=== PATIENT | female | born 1985 | race Caucasian/White ===

== ENCOUNTER 2022-12-28 12:10 | Emergency (ER) | payer BC, SELFPAY ==
[2022-12-28 12:27] VITALS: BP 126/83; PULSE 54; RESP 18; TEMP 36.8; O2SAT 97; BMI 33.2
--- NOTE | 2022-12-28 12:46 | CT_ITS ---
The [address] [address] Patient Name: CURT LEYVA MRN: [id number] date: 1985 Sex: F Assigned Patient Location: ER Current Patient Location: ER Accession/Order Number: [id number] Exam Date: 12/28/2022 12:50 Report Date: 12/28/2022 13:32 At the request of: PRESTON FLORES Procedure: CT cervical spine wo con CT cervical spine wo con, 12/28/2022 12:50 PM EDT INDICATION: Neck pain COMPARISON: Noncontrast CT of the cervical spine 03/09/2022 TECHNIQUE: Thin-section axial CT images of the entire cervical spine were acquired without contrast. Supplemental 2D reformatted images were generated and reviewed as needed. Dose reduction techniques were achieved by using automated exposure control and/or adjustment of mA and/or kV according to patient size and/or use of iterative reconstruction technique. FINDINGS: Straightening of cervical lordosis likely secondary to muscular spasm. No prevertebral soft tissue edema. No fracture. No subluxation. Vertebral body heights are maintained. Craniocervical junction is normal in appearance. Atlantodental distance is not widened. Thyroid gland is grossly unremarkable. No consolidation or effusion at the lung apices. CT/CT cervical spine wo con IMPRESSION: 1. No acute findings or significant degenerative change. Electronically authenticated by: LIANNE VARGAS Date: 12/28/2022 13:32
--- NOTE | 2022-12-28 12:46 | CT_ITS ---
The [address] [address] Patient Name: CURT LEYVA MRN: [id number] date: 1985 Sex: F Assigned Patient Location: ER Current Patient Location: ER Accession/Order Number: [id number] Exam Date: 12/28/2022 12:50 Report Date: 12/28/2022 13:18 At the request of: PRESTON FLORES Procedure: CT head/brain wo con CT head/brain wo con, 12/28/2022 12:50 PM EDT INDICATION: Face numbness COMPARISON: No prior CT of the head available for comparison at the time of this dictation. TECHNIQUE: Axial images of the head were obtained without IV contrast. Multiplanar reformatted images were generated and reviewed as needed. Dose reduction techniques were achieved by using automated exposure control and/or adjustment of mA and/or kV according to patient size and/or use of iterative reconstruction technique. FINDINGS: No intracranial mass, sulcal effacement, midline shift or acute hemorrhage. Cavum septum pellucidum. No hydrocephalus or extra-axial collection. Recinos-white matter differentiation is preserved. Orbits are unremarkable. The paranasal sinuses and mastoid air cells are clear. No acute skull fracture. CT/CT head/brain wo con IMPRESSION: No acute intracranial findings. Electronically authenticated by: LIANNE VARGAS Date: 12/28/2022 13:18
[2022-12-28] MEDS: ORPHENADRINE 60 MG/ 2 ML VIAL IM (13:45)
[2022-12-28] MEDS: KETOROLAC TROMETHAMINE 30 MG/ML VIAL IM (13:45)
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
== END 2022-12-28 14:24 | disposition home or self-care (01) ==
PROVIDERS: Emergency Provider Emergency Medicine
DX: S16.1XXA Strain of muscle, fascia and tendon at neck level, initial encounter (principal); M62.838 Other muscle spasm; X50.9XXA Other and unspecified overexertion or strenuous movements or postures, initial encounter; Z79.899 Other long term (current) drug therapy
CPT/HCPCS: 70450; 72125; 96372; 99284

== ENCOUNTER 2023-01-03 15:33 | Emergency (ER) | payer BC, SELFPAY ==
[2023-01-03 15:41] VITALS: BP 145/93; PULSE 79; RESP 20; TEMP 36.8; O2SAT 97; BMI 35.0
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
[2023-01-03 16:30] LABS: Basophils Percent Auto 0.4 % (0.2-2.0); Eosinophils Absolute Auto 0.1 10^3/uL (0.0-0.7); Hematocrit 40.1 % (36.0-48.0); Hemoglobin 13.4 g/dL (12.0-16.0); Immature Granulocytes Abs Auto 0.03 10^3/uL (0.00-0.03); Immature Granulocytes Pct Auto 0.4 % (0.0-0.5); Lymphocytes Absolute Auto 1.9 10^3/uL (1.2-3.8); Lymphocytes Percent Auto 25.9 % (20.5-60.0); Mean Corpuscular HGB Conc 33.4 g/dL (29.9-35.2); Mean Corpuscular Hemoglobin 30.3 pg (26.7-34.0); Mean Corpuscular Volume 90.7 fL (81.0-99.0); Mean Platelet Volume 10.1 fL (9.5-13.5); Monocytes Absolute Auto 0.4 10^3/uL (0.3-0.8); Monocytes Percent Auto 6.2 % (1.7-12.0); Neutrophils Absolute Auto 4.7 10^3/uL (1.4-6.5); Neutrophils Percent Auto 66.1 % (43.0-75.0); Platelet Count 225 10^3/uL (150-450); Red Blood Count 4.42 10^6/uL (4.20-5.40); Red Cell Distribution Width 12.6 % (11.0-15.0); White Blood Count 7.2 10^3/uL (4.0-11.0)
[2023-01-03] MEDS: METOCLOPRAMIDE HCL 10 MG/2 ML VIAL IVP (16:37)
[2023-01-03] MEDS: DEXAMETHASONE SODIUM PHOSPHATE 10 MG/ML VIAL IV (16:37)
[2023-01-03] MEDS: 0.9 % SODIUM CHLORIDE 1,000 ML 1000 ML IV (16:37)
[2023-01-03 16:38] LABS: Anion Gap 13.5; BUN Creatinine Ratio 12.7; Calcium 8.5 mg/dL (8.5-10.1); Carbon Dioxide 26.5 mmol/L (21.0-32.0); Chloride 105 mmol/L (98-107); Estimated GFR (African America >60 (>=60); Estimated GFR (Non-African Ame 56 (>=60); Glucose 100 mg/dL (74-106); Sodium 141 mmol/L (136-145)
--- NOTE | 2023-01-03 16:59 | CT_ITS ---
The [address] [address] Patient Name: CURT LEYVA MRN: [id number] date: 1985 Sex: F Assigned Patient Location: ER Current Patient Location: Accession/Order Number: [id number] Exam Date: 01/03/2023 16:50 Report Date: 01/03/2023 18:10 At the request of: ORACIO PETERSON Procedure: CT angio neck EXAM: CT angio head, CT angio neck HISTORY: Headache, visual disturbance of the left eye, left facial numbness and tingling sensation in left arm. COMPARISON: None. TECHNIQUE: Following IV administration of iodinated contrast, axial CT scans of the head and neck were obtained. MPR and MIP images images were obtained. In addition, 3-D reconstruction images were generated using a separate independent workstation. Carotid stenosis is based on NASCET criteria. Dose reduction techniques were achieved by using automated exposure control and/or adjustment of mA and/or kV according to patient size and/or use of iterative reconstruction technique. FINDINGS: CTA OF THE HEAD: No major branch occlusion or significant intracranial stenosis. No aneurysm.. Dural venous sinuses. CTA OF THE NECK: No abnormal soft tissue mass in the neck. The visualized lungs are clear. Osseous structures are intact. Aortic arch shows no aneurysm. The great vessels of the aortic arch show no significant stenosis. Vertebral arteries show no significant stenosis or dissection. Common carotids and internal carotids show no significant stenosis or dissection. CT/CT angio neck IMPRESSION: No large vessel occlusion or significant intracranial stenosis. No aneurysm. Patent dural venous sinuses. Carotids and vertebral arteries show no dissection or significant stenosis. It should be noted that head CT without contrast was not performed on this CTA of head and neck. As a result, I cannot assess for a small amount of intracranial hemorrhage. Electronically authenticated by: CONCHIS CASE Date: 01/03/2023 18:10
--- NOTE | 2023-01-03 16:59 | CT_ITS ---
The [address] [address] Patient Name: CURT LEYVA MRN: [id number] date: 1985 Sex: F Assigned Patient Location: ER Current Patient Location: Accession/Order Number: [id number] Exam Date: 01/03/2023 16:50 Report Date: 01/03/2023 18:10 At the request of: ORACIO PETERSON Procedure: CT angio head EXAM: CT angio head, CT angio neck HISTORY: Headache, visual disturbance of the left eye, left facial numbness and tingling sensation in left arm. COMPARISON: None. TECHNIQUE: Following IV administration of iodinated contrast, axial CT scans of the head and neck were obtained. MPR and MIP images images were obtained. In addition, 3-D reconstruction images were generated using a separate independent workstation. Carotid stenosis is based on NASCET criteria. Dose reduction techniques were achieved by using automated exposure control and/or adjustment of mA and/or kV according to patient size and/or use of iterative reconstruction technique. FINDINGS: CTA OF THE HEAD: No major branch occlusion or significant intracranial stenosis. No aneurysm.. Dural venous sinuses. CTA OF THE NECK: No abnormal soft tissue mass in the neck. The visualized lungs are clear. Osseous structures are intact. Aortic arch shows no aneurysm. The great vessels of the aortic arch show no significant stenosis. Vertebral arteries show no significant stenosis or dissection. Common carotids and internal carotids show no significant stenosis or dissection. CT/CT angio head IMPRESSION: No large vessel occlusion or significant intracranial stenosis. No aneurysm. Patent dural venous sinuses. Carotids and vertebral arteries show no dissection or significant stenosis. It should be noted that head CT without contrast was not performed on this CTA of head and neck. As a result, I cannot assess for a small amount of intracranial hemorrhage. Electronically authenticated by: CONCHIS CASE Date: 01/03/2023 18:10
[2023-01-03] MEDS: KETOROLAC TROMETHAMINE 30 MG/ML VIAL IVP (18:32)
== END 2023-01-03 19:03 | disposition home or self-care (01) ==
PROVIDERS: Nurse Practitioner Family; Emergency Provider Emergency Medicine
DX: R51.9 Headache, unspecified (principal); R20.2 Paresthesia of skin; M54.2 Cervicalgia; Z79.899 Other long term (current) drug therapy
CPT/HCPCS: 36415; 70496; 70498; 80048; 85025; 96374; 96375; 99285; J1100; Q9967

== ENCOUNTER 2024-04-24 15:32 | Outpatient (REF) | payer OTHER, SELFPAY ==
[2024-04-24 16:24] LABS: Glucose CSF 59 mg/dL (40-70); Glucose CSF 60 mg/dL (40-70); Total Protein CSF 33 mg/dL (15-45); Total Protein CSF 35 mg/dL (15-45)
[2024-04-24 16:41] LABS: CSF Clarity CLEAR (CLEAR); CSF Color COLORLESS (COLORLESS); CSF Total Volume 11.5 mL; CSF Tube # 2; Red Blood Cell CSF 90 cubic mm (0-0); Red Blood Cell CSF Side 1 80; Red Blood Cell CSF Side 2 83; White Blood Cell CSF 0 cubic mm (0-5); White Blood Cell CSF Side 1 0; White Blood Cell CSF Side 2 0
[2024-04-24 16:42] LABS: CSF Clarity CLEAR (CLEAR); CSF Color COLORLESS (COLORLESS); CSF Total Volume 11.5 mL; CSF Tube # 4; Red Blood Cell CSF 6 cubic mm (0-0); Red Blood Cell CSF Side 1 7; Red Blood Cell CSF Side 2 5; White Blood Cell CSF 0 cubic mm (0-5); White Blood Cell CSF Side 1 1; White Blood Cell CSF Side 2 0
== END 2024-04-24 15:33 | disposition home or self-care (01) ==
LOC: LAB 15:32
PROVIDERS: Visit Provider Psychiatry & Neurology Neurology
DX: G43.909 Migraine, unspecified, not intractable, without status migrainosus (principal); R94.02 Abnormal brain scan
CPT/HCPCS: 36415; 82164; 82945; 84157; 86617; 87070; 87205; 89050

== ENCOUNTER 2024-04-26 08:01 | Emergency (ER) | payer OTHER, SELFPAY ==
[2024-04-26 08:07] VITALS: BP 114/68; PULSE 71; TEMP 36.6; O2SAT 95; BMI 32.2
--- NOTE | 2024-04-26 08:16 | ED.GENADUL1 ---
HPI HPI - General Adult General Chief complaint: Nausea/Vomiting/Diarrhea Stated complaint: POST OP COMPLICATIONS Time Seen by Provider: 04/26/24 08:03 History of Present Illness HPI narrative: 38-year-old female presents for headache. 2 days ago she had a lumbar puncture and the rest of that day way down flat. Beginning yesterday whenever she stood up she got a severe headache. She states is not too bad when she is laying down but if she stands or sits up it becomes more severe. No fever but she had some vomiting. She does not complain of lower back pain or any weakness or numbness in her legs. Related Data Home Medications ?Medication ?Instructions ?Recorded ?Confirmed gabapentin 300 mg capsule 300 mg PO BID 12/28/22 12/28/22 topiramate 100 mg capsule,extended 100 mg PO DAILY 12/28/22 12/28/22 release 24 hr Previous Rx's ?Medication ?Instructions ?Recorded diclofenac sodium 75 mg 75 mg PO BID PRN pain #10 tabs 12/28/22 tablet,delayed release orphenadrine citrate 100 mg 100 mg PO BID PRN muscle spasm 12/28/22 tablet,extended release #10 tabs diclofenac sodium 75 mg 75 mg PO BID PRN pain #10 tabs 01/03/23 tablet,delayed release orphenadrine citrate 100 mg 100 mg PO BID PRN muscle spasm #10 01/03/23 tablet,extended release tabs hydrocodone 5 mg-acetaminophen 325 1 tab PO Q6H PRN pain 5 days #20 04/26/24 mg tablet tabs ondansetron 4 mg disintegrating 4 mg PO Q6H PRN nausea and 04/26/24 tablet vomiting #20 tabs Allergies Allergy/AdvReac Type Severity Reaction Status Date / Time Penicillins Allergy Intermediate Verified 12/28/22 12:31 Opioid HPI Opioid Management Most Recent Opioid Data: Last AUG Pain Assessment 04/26/24 08:31 Review of Systems ROS Narrative A ten point review of systems is negative except as noted above. PFSH PFSH Social History Smoking status: Never smoker Little interest or pleasure in doing things: not at all Feeling down, depressed, or hopeless: not at all Exam Narrative Exam Narrative: Nurses note and vital signs reviewed and patient is not hypoxic. General: The patient appears in no apparent distress. Patient is resting comfortably on cart. Skin: Warm, dry, no pallor noted. There is no rash noted. Head: Normocephalic, atraumatic; no nuchal rigidity Eye: Normal conjunctiva, no drainage Ears, Nose, Mouth, and Throat: oral mucosa is moist. Nares patent. Cardiovascular: Regular Rate and Rhythm Respiratory: Patient is in no distress, no accessory muscle use, lungs are clear to auscultation, no wheezing, rales or rhonchi Back: non-tender, lumbar puncture site shows no erythema or swelling GI: Soft and nontender Musculoskeletal: The patient has no evidence of calf tenderness, no pitting edema, symmetrical pulses noted bilaterally Neurological: A&O, normal speech Psychiatric: Cooperative Constitutional Vital Signs, click to edit/add: Last Vital Signs Temp 98 F 04/26/24 08:07 Pulse 71 04/26/24 08:07 Resp 16 04/26/24 08:07 BP 114/68 04/26/24 08:07 Pulse Ox 95 04/26/24 08:07 Course Vital Signs Vital signs: Vital Signs Temperature 98 F 04/26/24 08:07 Pulse Rate 71 04/26/24 08:07 Respiratory Rate 16 04/26/24 08:07 Blood Pressure 114/68 04/26/24 08:07 Pulse Oximetry 95 04/26/24 08:07 Temperature 98 F 04/26/24 08:07 Pulse Rate 71 04/26/24 08:07 Respiratory Rate 16 04/26/24 08:07 Blood Pressure 114/68 04/26/24 08:07 Pulse Oximetry 95 04/26/24 08:07 Medical Decision Making [facility] Narrative Medical decision making narrative: The patient presented with post lumbar puncture headache. She was given IV caffeine and morphine and feels improved. She is able to be discharged home on [place] and Zofran and was encouraged to drink plenty of fluids and to consume caffeine. Treatment diagnosis and follow-up were discussed with the patient. Differential Diagnosis Differential Diagnosis: Spinal headache Lab Data Lab results reviewed: Yes I reviewed the patient's lab results Labs: Lab Results 04/26/24 Range/Units 08:22 WBC 8.2 (4.0-11.0) 10^3/uL RBC 4.34 (4.20-5.40) 10^6/uL Hgb 13.6 (12.0-16.0) g/dL Hct 39.8 (36.0-48.0) % MCV 91.7 (81.0-99.0) fL MCH 31.3 (26.7-34.0) pg MCHC 34.2 (29.9-35.2) g/dL RDW 11.9 (11.0-15.0) % Plt Count 221 (150-450) 10^3/uL MPV 10.1 (9.5-13.5) fL Neut % (Auto) 67.7 (43.0-75.0) % Lymph % (Auto) 24.5 (20.5-60.0) % Charles % (Auto) 5.9 (1.7-12.0) % Eos % (Auto) 1.1 (0.9-7.0) % Baso % (Auto) 0.2 (0.2-2.0) % Neut # (Auto) 5.6 (1.4-6.5) 10^3/uL Lymph # (Auto) 2.0 (1.2-3.8) 10^3/uL Charles # (Auto) 0.5 (0.3-0.8) 10^3/uL Eos # (Auto) 0.1 (0.0-0.7) 10^3/uL Baso # (Auto) 0.0 (0.0-0.1) 10^3/uL Abs Immat Gran (auto) 0.05 H (0.00-0.03) 10^3/uL Imm/Tot Granulo (auto) 0.6 H (0.0-0.5) % Sodium 142 (136-145) mmol/L Potassium 3.5 (3.5-5.1) mmol/L Chloride 108 H (98-107) mmol/L Carbon Dioxide 21.1 (21.0-32.0) mmol/L Anion Gap 16.4 BUN 11.0 (7.0-18.0) mg/dL Creatinine 1.10 H (0.55-1.02) mg/dL Est GFR ( Amer) >60 (>=60 mL/min/1.73m^2) Est GFR (Non-Af Amer) 56 L (>=60 mL/min/1.73m^2) BUN/Creatinine Ratio 10.0 Glucose 103 (74-106) mg/dL Calcium 8.7 (8.5-10.1) mg/dL Discharge Plan Discharge Chief Complaint: Nausea/Vomiting/Diarrhea Clinical Impression: Spinal puncture headache Patient Disposition: Home, Self-Care Time of Disposition Decision: 09:28 Condition: Good Mode of Transportation: Private Vehicle Prescriptions / Home Meds: New hydrocodone-acetaminophen 5-325 mg tablet 1 tab PO Q6H PRN (Reason: pain) 5 Days Qty: 20 0RF ondansetron 4 mg tablet,disintegrating 4 mg PO Q6H PRN (Reason: nausea and vomiting) Qty: 20 0RF No Action gabapentin 300 mg capsule 300 mg PO BID topiramate 100 mg capsule,extended release 24hr 100 mg PO DAILY diclofenac sodium 75 mg tablet,delayed release (DR/EC) 75 mg PO BID PRN (Reason: pain) Qty: 10 0RF orphenadrine citrate 100 mg tablet extended release 100 mg PO BID PRN (Reason: muscle spasm ) Qty: 10 0RF diclofenac sodium 75 mg tablet,delayed release (DR/EC) 75 mg PO BID PRN (Reason: pain) Qty: 10 0RF orphenadrine citrate 100 mg tablet extended release 100 mg PO BID PRN (Reason: muscle spasm) Qty: 10 0RF Print Language: Italian Instructions: Acute Headache (ED) Referrals: Physician,Non-Staff, MD [Primary Care Provider] - 1 week
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
[2024-04-26 08:30] LABS: Basophils Percent Auto 0.2 % (0.2-2.0); Eosinophils Absolute Auto 0.1 10^3/uL (0.0-0.7); Eosinophils Percent Auto 1.1 % (0.9-7.0); Hematocrit 39.8 % (36.0-48.0); Hemoglobin 13.6 g/dL (12.0-16.0); Immature Granulocytes Abs Auto 0.05 10^3/uL (0.00-0.03); Immature Granulocytes Pct Auto 0.6 % (0.0-0.5); Lymphocytes Percent Auto 24.5 % (20.5-60.0); Mean Corpuscular HGB Conc 34.2 g/dL (29.9-35.2); Mean Corpuscular Hemoglobin 31.3 pg (26.7-34.0); Mean Corpuscular Volume 91.7 fL (81.0-99.0); Mean Platelet Volume 10.1 fL (9.5-13.5); Monocytes Absolute Auto 0.5 10^3/uL (0.3-0.8); Monocytes Percent Auto 5.9 % (1.7-12.0); Neutrophils Absolute Auto 5.6 10^3/uL (1.4-6.5); Neutrophils Percent Auto 67.7 % (43.0-75.0); Platelet Count 221 10^3/uL (150-450); Red Blood Count 4.34 10^6/uL (4.20-5.40); Red Cell Distribution Width 11.9 % (11.0-15.0); White Blood Count 8.2 10^3/uL (4.0-11.0)
[2024-04-26] MEDS: ONDANSETRON PF 4 MG/2 ML VIAL IV (08:31)
[2024-04-26] MEDS: CAFFEINE CITRATE 300 MG in DEXTROSE 5 % IN WATER 250 ML 530 MG IV (08:31)
[2024-04-26] MEDS: MORPHINE SULFATE 4 MG/ML VIAL IV (08:31)
[2024-04-26 08:37] LABS: Anion Gap 16.4; Calcium 8.7 mg/dL (8.5-10.1); Carbon Dioxide 21.1 mmol/L (21.0-32.0); Chloride 108 mmol/L (98-107); Estimated GFR (African America >60 (>=60 mL/min/1.73m^2); Estimated GFR (Non-African Ame 56 (>=60 mL/min/1.73m^2); Glucose 103 mg/dL (74-106); Potassium 3.5 mmol/L (3.5-5.1); Sodium 142 mmol/L (136-145)
== END 2024-04-26 09:46 | disposition home or self-care (01) ==
PROVIDERS: Emergency Provider Emergency Medicine
DX: G97.1 Other reaction to spinal and lumbar puncture (principal)
CPT/HCPCS: 36415; 80048; 85025; 96365; 96375; 99284; J0706; J2270; J2405

== ENCOUNTER 2024-10-16 12:41 | Emergency (ER) | payer OTHER, SELFPAY ==
[2024-10-16 12:43] VITALS: BP 127/78; PULSE 77; TEMP 36.8; O2SAT 99; BMI 29.3
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
[2024-10-16] MEDS: HYDROCODONE/ACET 5-325 MG TABLET 1 TAB PO (13:25)
[2024-10-16 14:43] VITALS: BP 116/72; PULSE 89; O2SAT 96
== END 2024-10-16 15:53 | disposition home or self-care (01) ==
PROVIDERS: Emergency Provider Emergency Medicine; PCP Family Medicine
DX: S40.022A Contusion of left upper arm, initial encounter (principal); S16.1XXA Strain of muscle, fascia and tendon at neck level, initial encounter; S09.90XA Unspecified injury of head, initial encounter; Z79.899 Other long term (current) drug therapy; V49.49XA Driver injured in collision with other motor vehicles in traffic accident, initial encounter; M25.562 Pain in left knee
CPT/HCPCS: 70450; 72125; 73060; 73562; 99284